=== PATIENT | male | born 1950 | race Caucasian/White ===

== ENCOUNTER 2024-04-15 16:37 | Emergency (ER) | payer OTHER, SELFPAY ==
[2024-04-15] VITALS (8 sets, daily range): BP systolic 213–246; BP diastolic 87–102; PULSE 60–81; RESP 14–20; TEMP 36.2–36.7; O2SAT 97–100
--- NOTE | ~2024-04-15 | XR_ITS ---
EXAMINATION: XR chest 2V Exam Date/Time: 04/15/2024 17:55 SHINGLE GRADER HISTORY: HTN, chest discomfort Comparison: None. RESULT: Lines, tubes, and devices: None. Lungs and pleura: Clear. Left hemidiaphragm elevation. Biapical pleural scarring. Cardiomediastinal silhouette: Stable. Other: No acute osseous or upper abdominal finding. IMPRESSION: No acute cardiopulmonary process. Reviewed, dictated and finalized at location K. GLE GRADER
--- NOTE | ~2024-04-15 | CT_ITS ---
EXAMINATION: CT brain wo con DATE: 04/15/2024 18:32 INDICATION: headache, HTN . TECHNIQUE: Computed tomography (CT) of the head was performed without intravenous contrast. The mA wa s adjusted according to patient size. Iterative reconstruction technique was employed. The dose-lengt h product was 681.00 mGy-cm. COMPARISON: None. FINDINGS: No acute intracranial hemorrhage or extra-axial fluid collection. No hydrocephalus, mass, or herniation. No acute ischemic infarct. Unremarkable dural venous sinus attenuation. No acute osseous abnormality. Right middle ethmoid opacification, the remaining aerated spaces are clear. IMPRESSION: No acute intracranial process. Reviewed, dictated and finalized at location K. AL MEDIA CAMPAIGN MANAGER
--- NOTE | 2024-04-15 17:04 | ECG_ITS ---
Test Date: 2024-04-15 17:10:32 Measurements Intervals [place] Rate: 72 P: 62 VT: 178 QRS: 0 QRSD: 150 T: 111 QT: 417 QTc: 459 Interpretive Statements SINUS RHYTHM LEFT BUNDLE BRANCH BLOCK [120+ ms QRS DURATION, 80+ ms Q/S IN V1/V2, 85+ ms R IN I/aVL/V5/V6] No previous ECG available for comparison Electronically Signed On 04-15-2024 22:38:21 EMERGENCY MEDICAL DISPATCHER by Kriss Su M.D.
[2024-04-15 17:18] LABS: Basophils Percent Auto 0.5 % (0.2-1.2); Eosinophils Absolute Auto 0.2 K/mm3 (0-0.3); Eosinophils Percent Auto 2.2 % (0-4.4); Hematocrit 43.1 % (42.0-52.0); Immature Granulocyte Absolute 0.04 K/mm3 (0.00-0.031); Immature Granulocyte Percent A 0.5 % (0-0.5); Lymphocytes Absolute Auto 1.36 K/mm3 (0.9-3.2); Lymphocytes Percent Auto 15.9 % (18.3-44.2); Mean Corpuscular HGB Conc 34.8 g/dl (32-36); Mean Corpuscular Hemoglobin 31.1 pg (26-34); Mean Corpuscular Volume 89.2 fl (80-100); Mean Platelet Volume 9.9 fl (7.4-10.4); Monocytes Absolute Auto 0.7 K/mm3 (0.1-0.6); Monocytes Percent Auto 8.2 % (2.6-8.5); Neutrophils Absolute Auto 6.2 K/mm3 (1.3-6.7); Neutrophils Percent Auto 72.7 % (45.5-73.1); Platelet Count Result 202 k/mm3 (150-375); Red Blood Count 4.83 M/mm3 (4.6-6.20); Red Cell Distribution Width 11.9 % (11.5-14.5); White Blood Count 8.5 K/mm3 (4.5-10.0)
[2024-04-15 17:31] LABS: Alanine Aminotransferase 25 U/L (6-50); Albumin Level 4.6 g/dL (3.5-5.1); Alkaline Phosphatase 100 U/L (38-126); Anion Gap 4 mmol/L (4-12); Aspartate Amino Transferase 36 U/L (17-59); Bilirubin,Total 1.1 mg/dL (0.2-1.3); Blood Urea Nitrogen 22 mg/dL (9-20); Calcium 9.7 mg/dL (8.4-10.2); Carbon Dioxide 31 mmol/L (22-30); Chloride 99 mmol/L (98-107); Estimated CRCL calculation 35 ml/min; Estimated Glomerular Filt Rate 42; Glucose 142 mg/dL (65-110); Lipase 254 U/L (23-300); Sodium 134 mmol/L (137-145)
[2024-04-15 17:36] LABS: Prothrombin Time 13.8 Seconds (11.1-14.7)
[2024-04-15 17:37] LABS: Partial Thromboplastin Time 30.7 Seconds (22.3-36.8)
[2024-04-15 17:42] LABS: Troponin I < 0.012 ng/mL (0.000-0.034)
--- NOTE | 2024-04-15 18:11 | ED_ITS ---
HPI - Recheck/Abnormal Lab/Rx General Chief Complaint: Recheck/Abnormal Lab/Rx <Blanca Vargas PA-C - Last Filed: 04/15/24 18:13> Stated Complaint: htn, dizziness <Blanca Vargas PA-C - Last Filed: 04/15/24 18:13> Time Seen by Provider: 04/15/24 21:32 <Blanca Vargas PA-C - Last Filed: 04/15/24 18:13> Focused HPI: 74-year-old male with history of hypertension on atenolol, hydrochlorothiazide, olmesartan presents to the emergency department for hypertension greater than 200 systolic. 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 States his blood pressure has been controlled with these 3 medications which she has been taking daily as prescribed. States he went to an orthopedic appointment today is blood pressure is greater than 200/100. States prior to discharge his blood pressure did come down spontaneously to 160s over 70s. He later went home and checked his blood pressure again and found to be greater 200 systolic again and came to the ED for further evaluation. He is reporting left-sided chest pain that is nonradiating and is not associated with shortness of breath. States this pain has been intermittent for the past few days. He is also reporting intermittent headaches. Denies vision changes, focal numbness or weakness. GENERAL: Well-appearing, well-nourished, and in no acute distress. HEAD: Normocephalic, atraumatic. CHEST: Clear to auscultation. ?No respiratory distress. HEART: Regular rate and rhythm.? NEURO: ?Alert and oriented x3. Patient screened in triage and initial orders placed.? ?Additional care and disposition to be based upon?diagnostic testing and treatment. <Blanca Vargas PA-C - Last Filed: 04/15/24 18:13> Related Data Allergies/Adverse Reactions: Allergies Allergy/AdvReac Type Severity Reaction Status Date / Time No Known Allergies Allergy Verified 04/15/24 17:05 <Blanca Vargas PA-C - Last Filed: 04/15/24 18:13> Exam 2 Narrative: APPEARANCE: No apparent distress. Head: atraumatic. EYES: EOMI, NOSE: Atraumatic NECK: Trachea midline RESPIRATORY: No increased rate of breathingClear to auscultation CARDIOVASCULAR: RRR, no peripheral edema ABDOMINAL: Non-distended soft nontender MUSCULOSKELETAl: No obvious deformities NEURO: Alert. Moving 4/4 extremities SKIN:: Warm, dry. Normal color PSYCHIATRIC: Normal affect <Phoenix Balbuena MD - Last Filed: 04/15/24 22:47> Course Vital Signs Vital signs: Vital Signs Temperature 97.2 F L 04/15/24 17:01 Pulse Rate 81 04/15/24 17:01 Respiratory Rate 16 04/15/24 17:01 Blood Pressure 244/94 H 04/15/24 17:01 Pulse Oximetry 99 04/15/24 17:01 Oxygen Delivery Room Air 04/15/24 17:01 Temperature 97.2 F L 04/15/24 17:01 Pulse Rate 67 04/15/24 21:40 Respiratory Rate 18 04/15/24 21:40 Blood Pressure 213/99 H 04/15/24 21:45 Pulse Oximetry 97 04/15/24 21:40 Oxygen Delivery Room Air 04/15/24 17:01 <Blanca Vargas PA-C - Last Filed: 04/15/24 18:13> Vital Signs Temperature 97.2 F L 04/15/24 17:01 Pulse Rate 81 04/15/24 17:01 Respiratory Rate 16 04/15/24 17:01 Blood Pressure 244/94 H 04/15/24 17:01 Pulse Oximetry 99 04/15/24 17:01 Oxygen Delivery Room Air 04/15/24 17:01 Temperature 97.2 F L 04/15/24 17:01 Pulse Rate 67 04/15/24 21:40 Respiratory Rate 18 04/15/24 21:40 Blood Pressure 213/99 H 04/15/24 21:45 Pulse Oximetry 97 04/15/24 21:40 Oxygen Delivery Room Air 04/15/24 17:01 <Phoenix Balbuena MD - Last Filed: 04/15/24 22:47> MDM - Recheck/Abnormal Lab/Rx MDM Narrative Medical decision making narrative: -Course: 74-year-old male history of hypertension presenting for hypertension. No neurologic symptoms chest pain or breathing laboratory studies within normal limits. Patient was given hydralazine. His atenolol was increased from 50 mg to 100 mg. He will be discharged with primary care follow- up. <Phoenix Balbuena MD - Last Filed: 04/15/24 22:47> Lab Data Result diagrams: 04/15/24 17:13 04/15/24 17:13 <Blanca Vargas PA-C - Last Filed: 04/15/24 18:13> Labs: Lab Results 04/15/24 04/15/24 Range/Units 17:13 22:01 WBC 8.5 (4.5-10.0) K/mm3 RBC 4.83 (4.6-6.20) M/mm3 Hgb 15.0 (14.0-18.0) g/dL Hct 43.1 (42.0-52.0) % MCV 89.2 (80-100) fl MCH 31.1 (26-34) pg MCHC 34.8 (32-36) g/dl RDW 11.9 (11.5-14.5) % Plt Count 202 (150-375) k/mm3 MPV 9.9 (7.4-10.4) fl Immature Gran % (Auto) 0.5 (0-0.5) % Neut % (Auto) 72.7 (45.5-73.1) % Lymph % (Auto) 15.9 L (18.3-44.2) % Haines % (Auto) 8.2 (2.6-8.5) % Eos % (Auto) 2.2 (0-4.4) % Baso % (Auto) 0.5 (0.2-1.2) % Lymph # (Auto) 1.36 (0.9-3.2) K/mm3 Haines # (Auto) 0.7 H (0.1-0.6) K/mm3 Eos # (Auto) 0.2 (0-0.3) K/mm3 Baso # (Auto) 0.0 (0.0-0.1) K/mm3 Abs Immat Gran (auto) 0.04 H (0.00-0.031) K/mm3 Absolute Neuts (auto) 6.2 (1.3-6.7) K/mm3 Absolute Nucleated RBC 0.000 (0.0-0.012) K/mm3 Nucleated RBC % 0.0 (0.0-0.2) % PT 13.8 (11.1-14.7) Seconds INR 1.0 APTT 30.7 (22.3-36.8) Seconds Sodium 134 L (137-145) mmol/L Potassium 4.0 (3.4-5.0) mmol/L Chloride 99 (98-107) mmol/L Carbon Dioxide 31 H (22-30) mmol/L Anion Gap 4 (4-12) mmol/L BUN 22 H (9-20) mg/dL Creatinine 1.60 H (0.7-1.3) mg/dL Estim Creat Clear Calc 35 ml/min Estimated GFR 42 L (59 - ) Glucose 142 H (65-110) mg/dL Calcium 9.7 (8.4-10.2) mg/dL Total Bilirubin 1.1 (0.2-1.3) mg/dL AST 36 (17-59) U/L ALT 25 (6-50) U/L Alkaline Phosphatase 100 (38-126) U/L Troponin I < 0.012 0.029 D (0.000-0.034) ng/mL Total Protein 8.0 (6.3-8.2) g/dL Albumin 4.6 (3.5-5.1) g/dL Lipase 254 (23-300) U/L <Blanca Vargas PA-C - Last Filed: 04/15/24 18:13> Lab Results 04/15/24 04/15/24 Range/Units 17:13 22:01 WBC 8.5 (4.5-10.0) K/mm3 RBC 4.83 (4.6-6.20) M/mm3 Hgb 15.0 (14.0-18.0) g/dL Hct 43.1 (42.0-52.0) % MCV 89.2 (80-100) fl MCH 31.1 (26-34) pg MCHC 34.8 (32-36) g/dl RDW 11.9 (11.5-14.5) % Plt Count 202 (150-375) k/mm3 MPV 9.9 (7.4-10.4) fl Immature Gran % (Auto) 0.5 (0-0.5) % Neut % (Auto) 72.7 (45.5-73.1) % Lymph % (Auto) 15.9 L (18.3-44.2) % Haines % (Auto) 8.2 (2.6-8.5) % Eos % (Auto) 2.2 (0-4.4) % Baso % (Auto) 0.5 (0.2-1.2) % Lymph # (Auto) 1.36 (0.9-3.2) K/mm3 Haines # (Auto) 0.7 H (0.1-0.6) K/mm3 Eos # (Auto) 0.2 (0-0.3) K/mm3 Baso # (Auto) 0.0 (0.0-0.1) K/mm3 Abs Immat Gran (auto) 0.04 H (0.00-0.031) K/mm3 Absolute Neuts (auto) 6.2 (1.3-6.7) K/mm3 Absolute Nucleated RBC 0.000 (0.0-0.012) K/mm3 Nucleated RBC % 0.0 (0.0-0.2) % PT 13.8 (11.1-14.7) Seconds INR 1.0 APTT 30.7 (22.3-36.8) Seconds Sodium 134 L (137-145) mmol/L Potassium 4.0 (3.4-5.0) mmol/L Chloride 99 (98-107) mmol/L Carbon Dioxide 31 H (22-30) mmol/L Anion Gap 4 (4-12) mmol/L BUN 22 H (9-20) mg/dL Creatinine 1.60 H (0.7-1.3) mg/dL Estim Creat Clear Calc 35 ml/min Estimated GFR 42 L (59 - ) Glucose 142 H (65-110) mg/dL Calcium 9.7 (8.4-10.2) mg/dL Total Bilirubin 1.1 (0.2-1.3) mg/dL AST 36 (17-59) U/L ALT 25 (6-50) U/L Alkaline Phosphatase 100 (38-126) U/L Troponin I < 0.012 0.029 D (0.000-0.034) ng/mL Total Protein 8.0 (6.3-8.2) g/dL Albumin 4.6 (3.5-5.1) g/dL Lipase 254 (23-300) U/L <Phoenix Balbuena MD - Last Filed: 04/15/24 22:47> Discharge Plan Discharge Clinical Impression: Asymptomatic hypertension <Blanca Vargas PA-C - Last Filed: 04/15/24 18:13> Patient Disposition: Home, Self-Care <Blanca Vargas PA-C - Last Filed: 04/15/24 18:13> Condition: Stable <Blanca Vargas PA-C - Last Filed: 04/15/24 18:13> Instructions: Antibiotic Form, Hypertension (ED) <Blanca Vargas PA-C - Last Filed: 04/15/24 18:13> Additional Instructions: Please follow-up with your primary care physician for further management. You can increase her atenolol from 50 mg once daily to 100 mg once daily. Return if you develop slurred speech weakness to any extremity chest pain or difficulty breathing. <Blanca Vargas PA-C - Last Filed: 04/15/24 18:13> Patient Language: Sinhala <Blanca Vargas PA-C - Last Filed: 04/15/24 18:13> Follow-up/Referrals: UNKNOWN,DOCTOR [Primary Care Provider] - <Blanca Vargas PA-C - Last Filed: 04/15/24 18:13>
[2024-04-15] MEDS: ASPIRIN 81 MG CHEWABLE TABLET 324 MG PO (18:16)
[2024-04-15] MEDS: hydrALAZINE 10 MG TABLET PO (18:19)
--- NOTE | 2024-04-15 21:52 | ECG_ITS ---
Test Date: 2024-04-15 22:05:49 Measurements Intervals [place] Rate: 56 P: 52 TN: 192 QRS: -4 QRSD: 147 T: 64 QT: 469 QTc: 455 Interpretive Statements SINUS BRADYCARDIA LEFT BUNDLE BRANCH BLOCK [120+ ms QRS DURATION, 80+ ms Q/S IN V1/V2, 85+ ms R IN I/aVL/V5/V6] Compared to ECG 04/15/2024 17:10:32 Sinus rhythm no longer present Electronically Signed On 04-15-2024 22:25:25 SENIOR SYSTEMS ADMINISTRATOR by Kriss Su M.D.
[2024-04-15 22:31] LABS: Troponin I 0.029 ng/mL (0.000-0.034)
[2024-04-15] MEDS: atenoloL 50 MG TABLET 100 MG PO (22:53)
== END 2024-04-15 23:08 | disposition home or self-care (01) ==
PROVIDERS: Emergency Medicine; Emergency Provider Emergency Medicine
DX: I10 Essential (primary) hypertension (principal)
CPT/HCPCS: 36415; 70450; 71046; 80053; 83690; 84484; 85025; 85610; 85730; 93005; 99284; A9270